=== PATIENT | female | born 1995 | race African-American/Black ===

== ENCOUNTER 2022-12-06 10:56 | Day surgery (SDC) | payer OTHER ==
[~2022-12-06] VITALS: Ht 160 cm; Wt 52.1 kg
[2022-12-06] VITALS (8 sets, daily range): BP systolic 107–127; BP diastolic 69–109; PULSE 65–96; TEMP 97.1–97.7
[~2022-12-06 10:56] MED LIST: PROTONIX 40MG T40 MG PO
--- NOTE | 2022-12-06 13:40 | NUR ---
1340- PATIENT RETURNS TO [facility] VIA CART. PT AWAKE AND ALERT. RESPIRATIONS UNLABORED. AMBULATED TO RECLINER CHAIR WITH 2:1 SBA. PT C/O ABDOMINAL PAIN AND THROAT BEING DRY. PT RATES ABD PAIN AT A 7/10. WARM BLANKET APPLIED TO ABD. PT ENCOURAGED TO PASS GAS AND BELCH TO HELP DECREASE GAS DISCOMFORT. PT. ALSO SHIVERING. HOOKED UP TO MONITOR AND FREQUENT VS MONITORED. CALL LIGHT AT SIDE AND FRIEND PRESENT. 1350- PATIENT TOLERATING DRINK AND MUFFIN WITHOUT NAUSEA OR DIFFICULTY SWALLOWING. DRINK HELPED THE THROAT DISCOMFORT SOME. 1355- PT. REPORTS THAT HER ABDOMINAL PAIN IS STARTING TO SUBSIDE. 1400- SHIVERING COMPLETELY RESOLVED AND ABD PAIN DECREASED TO A 2/10. D/C INSTRUCTIONS REVIEWED WITH PATIENT. PT VERBALIZED UNDERSTANDING AND A COPY OF INSTRUCTIONS PROVIDED IN D/C FOLDER. VS CONTINUE TO BE MONITORED CLOSELY. 1423- DR. CANTU IN ROOM SPEAKING TO PATIENT. 1435- PATIENT DRESSES SELF. 1440- PATIENT DISCHARGED FROM UNIT VIA W/C TO A PERSONAL VEHICLE. PT LEFT HOSPITAL IN STABLE CONDITION.
== END 2022-12-06 14:40 | disposition home or self-care (01) ==
LOC: SDCO 10:56
DX: K29.50 Unspecified chronic gastritis without bleeding (principal); K44.9 Diaphragmatic hernia without obstruction or gangrene; K59.00 Constipation, unspecified; D64.89 Other specified anemias; K20.90 Esophagitis, unspecified without bleeding
CPT/HCPCS: J2704

== ENCOUNTER 2024-05-16 04:25 | Emergency (ER) | payer SELFPAY ==
[~2024-05-16] VITALS: Ht 165.1 cm; Wt 56.4 kg
[~2024-05-16 04:25] MED LIST changes: +BENTYL 20MG20 MG/TAB PO; +CARAFATE S1 GM/10 ML PO; +NORCO 325 MG-51 TAB PO
[2024-05-16] MEDS ORDERED: Morphine 10 MG/ML VIAL IM ONE (05:00)
[2024-05-16] MEDS ORDERED: Ketorolac 30 MG/ML VIAL IM ONE (05:00)
[2024-05-16] MEDS ORDERED: diphenhydrAMINE 50 MG/ML 1 ML VIAL IM ONE (05:30)
[2024-05-16] MEDS ORDERED: LORazepam 1 MG TAB PO ONE (06:00)
[2024-05-16 06:34] VITALS: BP 117/81; PULSE 83; TEMP 97.8
== END 2024-05-16 06:36 | disposition home or self-care (01) ==
LOC: COL.ER 04:25
PROVIDERS: Emergency Medicine
DX: R10.9 Unspecified abdominal pain (principal); Z87.42 Personal history of other diseases of the female genital tract
CPT/HCPCS: J1200; J1885; J2270; J2765